=== PATIENT | male | born 1960 | race Caucasian/White ===

== ENCOUNTER → 2023-04-29 | Outpatient (CLI) | payer OTHER, SELFPAY ==
--- NOTE | 2023-04-29 13:32 | EKG12_ITS ---
Test Reason : PRE OP Blood Pressure : / mmHG Vent. Rate : 054 BPM Atrial Rate : 054 BPM P-R Int : 132 ms QRS Dur : 130 ms QT Int : 424 ms P-R-T Axes : 086 096 068 degrees QTc Int : 402 ms Sinus bradycardia with Premature atrial complexes Right bundle branch block Abnormal ECG Confirmed by OSVALDO LOMBARDI, NAZARIO ([id number]), supervising film or videotape editor ROYCE TRUJILLO ([id number]) on 05/06/2023 9:28:33 AM Referred By: Jimmy Balderas Confirmed By:NAZARIO RILEY MD
== END | disposition home or self-care (01) ==
PROVIDERS: Referring Provider Student in an Organized Health Care Education/Training Program; Visit Provider Student in an Organized Health Care Education/Training Program
DX: Z01.818 Encounter for other preprocedural examination (principal)
CPT/HCPCS: 93005

== ENCOUNTER → 2023-07-17 | Outpatient (CLI) | payer OTHER, SELFPAY ==
[2023-07-17 10:56] LABS: Hematocrit 47.2 % (40-54); Hemoglobin 15.9 g/dL (13.0-16.5); Mean Corp Hgb Conc 33.7 g/dL (32-36); Mean Corpuscular Hgb 32.5 pg (27.0-32.0); Mean Corpuscular Volume 96.5 fL (80-94); Mean Platelet Vol. 9.4 fl (6.2-12.0); Platelet Count 263 K/mm3 (150-450); RBC Distribution Width CV 14.3 % (11.6-14.6); RBC Distribution Width SD 51.2 fl (35.1-43.9); Red Blood Count 4.89 M/mm3 (4.6-6.2); White Blood Count 7.6 K/mm3 (4.4-11.0)
[2023-07-17 11:41] LABS: ALB/GLOB Ratio 1.1 RATIO (0.9-2.4); AST(SGOT) 26 U/L (15-37); Alanine Aminotransfer ALT/SGPT 25 U/L (16-61); Albumin, Serum 3.8 g/dL (3.2-5.0); Alkaline Phosphatase 84 U/L (45-117); Anion Gap 3 (5-15); BUN 17 mg/dL (7-18); BUN/Creat Ratio 15.6 RATIO (10-20); Chloride 103 mmol/L (98-107); Cholesterol 194 mg/dL (200); Creatinine, Serum 1.09 mg/dL (0.70-1.30); EST Glomerular Filtration Rate 73 mL/min (>60); Est Glom Filt Rate - Afr Amer 88 mL/min (>60); Globulin 3.5 g/dL (2.2-4.2); Glucose 84 mg/dL (74-106); High Density Lipoprotein 70 mg/dL; Protein, Total 7.3 g/dL (6.4-8.2); Sodium Level 137 mmol/L (136-145); Triglycerides 54 mg/dL; Very Low Density Lipoprotein 11 mg/dL (5-40)
--- OUTSIDE RECORDS SUMMARY | 2023-07-17 16:43 | XMS RPT_ITS | CCD ---
Author Name Unknown Address [address] [place] [address] Organization [facility] Allergies Allergy Classification Reported Allergen(s) Allergy Type Date of Onset Reaction(s) Facility (1 source) buPROPion; Translations: [BUPROPION HCL] Drug Allergy 01-22-2005 [facility] Repository Results Test Name Value Interpretation Reference Range Facil ity Encounters Encounter Date Encounter Type Care Provider Facility Start: 02-21-2017 End: 02-21-2017 Ambulatory [facility] Summary Purpose Family History No Family History Records Found Advance Directives No Advanced Directives Records Found Additional Source Comments (unrecognized sect ion and content) No Status Records Found INFORMATION SOURCE (unrecogn ized section and content) FOR RECORDS PERTAINING TO PATIENTS WHO ARE OR HAVE BEEN ENROLLED IN A CHEMICAL DEPENDENCY/SUBSTANCEABUSE PROGRAM, SOME INFORMATION MAY BE OMITTED. This clinical summary was aggregated from multiple sources. Caution should be exercised in using it in the provision of clinical care. This summary normalizes information from multiple sources, and as a consequence, information in this document may materially change the coding, format and clinical context of patient data. In addition, data may be omitted in some cases. CLINICAL DECISIONS SHOULD BE BASED ON THE PRIMARY CLINICAL RECORDS. [employer] provides no warranty or guarantee of the accuracy or completeness of information in this document.
== END | disposition home or self-care (01) ==
PROVIDERS: Visit Provider Internal Medicine Cardiovascular Disease
DX: Z01.810 Encounter for preprocedural cardiovascular examination (principal)
CPT/HCPCS: 36415; 80053; 80061; 85027

== ENCOUNTER 2024-01-08 05:44 | Day surgery (SDC) | payer OTHER, SELFPAY ==
[2023-12-25 08:26] LABS: Absolute Lymphocyte Count 3.05 X10^3/uL (0.83-4.51); Absolute Neutrophil Count 4.6 X10^3/uL (2.0-7.7); Basophil# 0.07 X10^3/uL; Basophil% 0.8 % (0-1); Eosinophil# 0.13 X10^3/uL; Eosinophils% 1.5 % (0-5); Hematocrit 47.6 % (40-54); Hemoglobin 15.8 g/dL (13.0-16.5); Lymphocyte # 3.05 X10^3/ul (0.83-4.51); Lymphocyte % 35.9 % (19-41); Mean Corp Hgb Conc 33.2 g/dL (32-36); Mean Corpuscular Hgb 32.1 pg (27.0-32.0); Mean Corpuscular Volume 96.7 fL (80-94); Mean Platelet Vol. 9.7 fl (6.2-12.0); Monocyte# 0.64 X10^3/uL; Monocyte% 7.5 % (0-10); NRBC Flagged by Analyzer 0 % (0-5); Neutrophil # 4.59 X10^3/uL (2.7-7.7); Neutrophil % 54.1 % (47-70); Platelet Count 243 K/mm3 (150-450); RBC Distribution Width CV 14.5 % (11.6-14.6); RBC Distribution Width SD 51.9 fl (35.1-43.9); Red Blood Count 4.92 M/mm3 (4.6-6.2); White Blood Count 8.5 K/mm3 (4.4-11.0)
[2023-12-25 08:54] LABS: Anion Gap 2 (5-15); BUN 16 mg/dL (7-18); Calcium,Total 9.2 mg/dL (8.5-10.1); Chloride 103 mmol/L (98-107); Creatinine, Serum 1.14 mg/dL (0.70-1.30); EST Glomerular Filtration Rate 69 mL/min (>60); Est Glom Filt Rate - Afr Amer 84 mL/min (>60); Glucose 107 mg/dL (74-106); Potassium 3.7 mmol/L (3.5-5.1); Sodium Level 136 mmol/L (136-145)
[2024-01-08] VITALS (10 sets, daily range): BP systolic 126–155; BP diastolic 70–91; PULSE 40–69; RESP 14–18; TEMP 36.1–36.6; O2SAT 93–98; BMI 19.8
[2024-01-08] MEDS: Lactated Ringers 1,000 ML 15 ML IV (06:11)
--- NOTE | 2024-01-08 07:03 | PCM.PRE.AN2 ---
ASA Classification* ASA Classification ASA Classification: 2 Assessment & Plan Anesthesia* Anesthesia Assessment Anesthesia Assessment: Discussed sedation and/or anesthesia options, risks, benefits, and alternatives with patient/parents/legal guardian/POA. Questions invited. The patient/parents/legal guardian/POA seems to understand and agrees to proceed with anesthesia plan. Reviewed the physical assessment, medical history, allergy history and patient home medications list prior to surgery/procedure/anesthetic and documented any changes. Performed airway and anesthesia risk assessments. Anesthesia Type Anesthesia Type: General (see written pre anesthesia record for full assessment) Anesthesia Focused Assessment* Temperature: 97.5 F Pulse Rate: 40 Blood Pressure: 155/76 Respiratory Rate: 16 Pulse Ox: 98 Airway Assessment Mouth opens: >3 cm Mallampati Score: II Focused Labs Anesthesia Preop lab: CBC WBC 8.5 K/mm3 (4.4-11.0) 12/25/23 08:02 RBC 4.92 M/mm3 (4.6-6.2) 12/25/23 08:02 Hgb 15.8 g/dL (13.0-16.5) 12/25/23 08:02 Hct 47.6 % (40-54) 12/25/23 08:02 Plt Count 243 K/mm3 (150-450) 12/25/23 08:02 CHEMISTRY Potassium 3.7 mmol/L (3.5-5.1) 12/25/23 08:02 Sodium 136 mmol/L (136-145) 12/25/23 08:02 BUN 16 mg/dL (7-18) 12/25/23 08:02 Creatinine 1.14 mg/dL (0.70-1.30) 12/25/23 08:02 Glucose 107 mg/dL (74-106) H 12/25/23 08:02 COAG Pre-Assessment Diagnosis/Proposed Procedure Planned Operative Procedure(s): (R) Middle and Ring Finger Trigger Release, Carpal Tunnel Release and Elbow Ulnar Nerve Decompression and Transposition Anesthesia History 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 When Was Last Pacemaker Check QUESTION #4 FULL TEXT: You/Your Family Experience fever (hyperthermia) with Anesthesia Last Oral Intake Last Oral intake: Last Oral Intake NPO since 22:00 01/08/24 06:07 Meds taken in AM with sips of water? 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 operator Female No 12/24/23 08:24 HX of Motion Sickness No 12/24/23 08:24 HX of N/V After Surgery No 12/24/23 08:24 Non-Smoker No 12/24/23 08:24 Duration of Surgery greater Yes 12/24/23 08:24 than 60 minutes Number of Risk Factors 1 12/24/23 08:24 PONV Score Low Risk 12/24/23 08:24 Height & Weight Height & Weight: Anesthesia: Height & Weight Height 6 ft 1 in 01/08/24 06:07 Weight: 68 kg 01/08/24 06:07 Body Mass Index (BMI) 19.8 01/08/24 06:07 Respiratory Assessment Respiratory Assessment - ring cutter lathe operator: Respiratory Tract Infection Hx - ring cutter lathe operator Hx Respiratory Tract Infection No 12/24/23 08:24 STOP Sleep Apnea STOP Sleep Apnea - ring cutter lathe operator: STOP Sleep Apnea - ring cutter lathe operator Hx Hypertension Yes: CONTROLLED WITH MED 12/24/23 08:24 Hx Sleep Apnea No 12/24/23 08:24 CPAP BIPAP Do you snore loudly (louder No 12/24/23 08:24 than talking or can be heard Do you often feel tired/ No 12/24/23 08:24 fatigued/ sleepy during daytime? Has anyone observed you stop No 12/24/23 08:24 breathing during sleep? STOP Results Negative 12/24/23 08:24 QUESTION #5 FULL TEXT : Do you snore loudly (louder than talking or can be heard through closed doors)? 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 Specify any problems Hx of Preganancy in last 3 N/A 12/24/23 08:24 Months Nurse Filling Out Transfusion NBUCHER 12/24/23 08:24 & Questions: Date: 12/24/23 12/24/23 08:24 Time: 08:26 12/24/23 08:24 Patient unable to answer at this time (ie. confused, unrespo /Reproduction History /Reproductive History - ring cutter lathe operator: /Reproductive Hx- ring cutter lathe operator Hx Now No 12/24/23 08:24 Gestational Age (in weeks): EDC: Hx Hx Para Hx Section SAB No 12/24/23 08:24 Active Medications Active Medications: Current Medications Generic Name Dose Route Start Last Admin Trade Name Freq PRN Reason Stop Dose Admin Cefazolin Sodium 2 gm/ Sodium 110 mls @ 150 mls/hr 01/08/24 07:30 Chloride IV 01/08/24 08:13 PREOP ONE Lactated Ringer's 1,000 mls @ 15 mls/hr 01/08/24 06:00 01/08/24 06:11 IV 15 mls/hr .Q48H VENKATA Administration PFSH Medical History Wears glasses Smoker Cardiology follow-up encounter Abnormal EKG History of depression TIA (transient ischemic attack) History of pelvic fracture Home Medications ?Medication ?Instructions ?Recorded ?Last Taken ?Type losartan 50 mg tablet 50 mg PO DAILY #90 tabs 01/07/24 Unknown Rx Allergy/AdvReac Type Severity Reaction Status Date / Time bupropion (From Wellbutrin) Allergy Severe Unknown Verified 01/08/24 06:07 Family History Mother Diabetes Surgical History History of appendectomy History of disruption of medial collateral ligament History of reconstruction of anterior cruciate ligament tear History of foot surgery Social History Smoking Status: Current every day smoker tobacco type: cigarettes alcohol intake: current substance use type: marijuana caffeine: Yes Type: coffee Number of servings: 4 Review of Systems (Anesthesia) ROS Narrative System reviewed and no additional complaints, except as documented.
[2024-01-08] MEDS: Cefazolin 2 GM in 0.9% Normal Saline (100mL Bag) 100 ML IV (07:25)
[2024-01-08] MEDS: Bupivacaine Mpf 0.5% 30 ML VIAL (08:18)
--- NOTE | 2024-01-08 08:42 | PCM.POST.ANE ---
Anesthesia: Postop Eval I Current Vital Signs Temperature: 97.6 F Pulse Rate: 43 Blood Pressure: 134/73 Respiratory Rate: 14 Pulse Ox: 97 Oxygen Delivery Method: Room Air Assessment Airway patent: Yes Spontaneous unlabored respirations: Yes Mental status: Awake and Calm nausea: No Vomiting: No Anesthesia Complication: No Fluid Hydration Crystalloid volume administer (ml): 1,000 Total IV fluid infused: 1,000 Progress Note Anesthesia document: Postop Eval 1 completed: Yes
[2024-01-08] MEDS: Ketorolac 15 MG/ML Vial IV (08:55)
--- NOTE | 2024-01-08 09:10 | POSTOPAN2_ITS ---
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.[email or web address] Spontaneous unlabored Yes 01/08/24 08:43 WATERPROOF BAG CUTTING MACHINE OPERATOR.[email or web address] respirations Mental status Awake,Calm 01/08/24 08:43 WATERPROOF BAG CUTTING MACHINE OPERATOR.[email or web address] nausea No 01/08/24 08:43 WATERPROOF BAG CUTTING MACHINE OPERATOR.JBLOU Vomiting No 01/08/24 08:43 WATERPROOF BAG CUTTING MACHINE OPERATOR.JBLOU Anesthesia Postop Eval I: Fluid Summary Crystalloid volume administer 1,000 01/08/24 08:43 WATERPROOF BAG CUTTING MACHINE OPERATOR.JBLOU (ml) Colloids volume administered ( ml) Blood Product volume administered (ml) Total IV fluid infused 1,000 01/08/24 08:43 WATERPROOF BAG CUTTING MACHINE OPERATOR.JBLOU Anesthesia Postop Eval I: Summary Notes Anesthesia Complication No 01/08/24 08:43 WATERPROOF BAG CUTTING MACHINE OPERATOR.JBLOU Anesthesia Complication Comment: Post-operative progress note Anesthesia: Postop Eval II Evaluation Mental status: Awake Pain Level: 0 nausea: No Vomiting: No
--- NOTE | 2024-01-08 09:10 | PCM.POSTANE2 ---
Anesthesia Postop Eval I Sum Postop Eval Completion status Anesthesia document: Postop Eval 1 completed: Yes Anesthesia Postop Eval I Summary Anesthesia Postop Eval I Summary: Anesthesia Postop Eval I: Assessment Summary Airway patent Yes 01/08/24 08:43 DERMATOLOGY SPECIALIST.[email or web address] Spontaneous unlabored Yes 01/08/24 08:43 DERMATOLOGY SPECIALIST.JBLOU respirations Mental status Awake,Calm 01/08/24 08:43 DERMATOLOGY SPECIALIST.JBLOU nausea No 01/08/24 08:43 DERMATOLOGY SPECIALIST.JBLOU Vomiting No 01/08/24 08:43 DERMATOLOGY SPECIALIST.JBLOU Anesthesia Postop Eval I: Fluid Summary Crystalloid volume administer 1,000 01/08/24 08:43 DERMATOLOGY SPECIALIST.JBLOU (ml) Colloids volume administered ( ml) Blood Product volume administered (ml) Total IV fluid infused 1,000 01/08/24 08:43 DERMATOLOGY SPECIALIST.JBLOU Anesthesia Postop Eval I: Summary Notes Anesthesia Complication No 01/08/24 08:43 DERMATOLOGY SPECIALIST.JBLOU Anesthesia Complication Comment: Post-operative progress note Anesthesia: Postop Eval II Evaluation Mental status: Awake Pain Level: 0 nausea: No Vomiting: No
--- NOTE | 2024-01-08 10:17 | OP.PCM_ITS ---
Report of Operation Date of Procedure: 01/08/24 Description of Surgical Findings:: Preoperative diagnosis: 1. Right long finger trigger finger 2. Right ring finger trigger finger 3. 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 Right carpal tunnel syndrome Postoperative diagnosis: 1. Right long finger trigger finger 2. Right ring finger trigger finger 3. 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 Right carpal tunnel syndrome Procedure: 1. Right long finger A1 gissel release 2. Right ring finger A1 gissel release 3. Right cubital tunnel decompression with subcutaneous ulnar nerve anterior transposition 4. Right open carpal tunnel release Surgeon: Jimmy Balderas DO medical assistant dermatology: Bebe Leonard PA-C Anesthesia: General LMA Anesthesiologist: Dr. Alvarez Complications: None Drains: None Estimated blood loss: 10 cc Urinary output: None measured IV fluids: Per anesthesia record Specimens: None Surgical implants: None Surgical indications: This is a 63-year-old male seen in the outpatient setting diagnosed with right long and ring finger trigger fingers, acute carpal tunnel syndrome and right cubital tunnel syndrome with ulnar nerve instability. The patient failed nonoperative management in the form of anti-inflammatory medications, activity modification. Nerve compression was was confirmed on EMG/NCV. Operative intervention was recommended in the form of A1 gissel releases of the right long and ring fingers, carpal tunnel release and cubital tunnel decompression with ulnar nerve transposition. There was evidence of ulnar nerve instability on examination the office. The risks, benefits, alternatives to procedure were reviewed with patient at length in the outpatient setting and he agreed to proceed. Risks included but were not limited to bleeding, infection, loss of life or limb, risk of anesthesia, persistent pa resthesias, persistent triggering, stiffness neurovascular injury, persistent pain, need for additional surgery, stiffness, loss of hand function. Patient expressed understanding wish to proceed with surgery. Informed consent obtained in the office. Description of procedure: Patient was seen in preoperative holding area. Patient was identified by name, medical record number, date of . The operative extremity was marked with a surgical marker. We confirmed informed consent with the patient and all questions were answered to the patient's satisfaction. At time of his procedure, patient was brought to the operative suite and positioned supine a standard operating table. All bony prominences were well- padded. General anesthesia was induced and LMA placed. The operative upper extremity was then prepped for surgery by first applying a well-padded pneumatic tourniquet to the right upper arm. The hand table attached to the right side of the table. We spun the bed 90 degrees. The right upper extremity was then prepped and draped in normal, sterile orthopedic fashion. 2 g Ancef was administered prior to incision by anesthesia staff. We performed a timeout at this point confirming side, site, and operation to be performed. No concerns voiced and elected to proceed. I then exsanguinated the right extremity with a Esmarch bandage. Tourniquet inflated to 250 mL mercury for approximately 25 minutes. I first turned my attention to the right long finger A1 gissel. Longitudinal incision was made sharply through skin and subcutaneous tissue overlying the A1 gissel in the pal m. I bluntly dissected down to level A1 gissel. Neurovascular bundles were protected. The A1 gissel was then split in line with the incision. Complete release was confirmed. Flexor tendons were then retrieved out of the wound and examined without gross abnormality. No residual triggering was noted. I then turned my attention to the right ring finger. Longitudinal incision was made sharply over the A1 gissel in the palm approximately 1 cm. Blunt dissection was carried down to level of the A1 gissel. Neurovascular bundles were protected. The A1 gissel was then split in line with the incision. Complete release was confirmed. The flexor tendons were retrieved out of the wound and examined without gross abnormality. No residual triggering was noted. I then turned my attention to the carpal tunnel. A standard longitudinal incision was made distal to the wrist crease and proximal to Oshea's cardinal line and in line with the fourth ray. Full-thickness skin flaps were developed down to level of the palmar fascia. Heiss retractor was placed. Palmar fascia was opened in line with the incision. Palmaris brevis was encountered and cauterized. Transverse carpal ligament was then identified and split sharply in line with the incision. The contents of the carpal tunnel were then visualized. Complete proximal and distal release of the transverse carpal ligament was perf ormed. The distal 5 mm of the antebrachial fascia was also released sharply. No aberrancies of the median nerve were noted. I then turned my attention to the elbow. Standard oblique incision was made approximately 6 cm in length across the elbow crease between the medial epicondyle and the olecranon. Skin was sharply incised with a 15 blade scalpel. Blunt dissection was carried down to the level of the fascia. A large branch of the median antebrachial cutaneous nerve was identified and protected throughout the case. Crossing vessels were cauterized. I then opened the fascia overlying the cubital tunnel. The ulnar nerve was identified and appeared to be constricted at the FCU 2 heads. Superficial and deep fascia of the FCU was released. Stoddard's ligament was released. The arcade of [place] was then released. A 1 x 5 cm slip of intermuscular septum was also excised in the brachium. I then placed a vessel loop around the ulnar nerve due to clinical instability of the nerve. I carefully elevated the nerve from surrounding adhesions at its base. The nerve was transposed volarly. I then elevated a fascial flap from the flexor pronator mass approximately 3 cm in length originating from the medial epicondyle. I placed a horizontal mattress suture from the edge of this flap to the subcutaneous fascia creating a sling for anterior transposition. I tied 1 knot in this flap fixation and brought the elbow through range of motion. No kinking of the nerve was noted and the nerve was free to glide within the transposed position. No remaining entrapment was noted in the cubital tunnel. I then completed fixation with several square knots. Tourniquet was then deflated. The wounds were copiously irrigated with normal saline solution. Hemostasis was excellent. A field block was administered with 30 cc 0.5% plain Marcaine in the incisions. Dermis was reapproximated buried 3-0 Vicryl suture and skin was closed with running horizontal mattress 4-0 nylon suture in the elbow incision. A1 gissel release and carpal tunnel incisions were reapproximated with interrupted horizontal mattress 4-0 nylon suture. Sterile compression dressing was then applied. Patient tolerated procedure well without apparent complication. Patient was transferred to PACU in stable condition. Patient was placed in a simple sling. Intraoperative medications: Post Operative Plan: Weightbearing: Nonweightbearing operative extremity Antibiotics: Ancef 2 g x 1 dose preoperatively DVT Prophylaxis: Twice daily aspirin 81 mg x 2 weeks Seaman: None Dressing: Maintain dressing x 3 days then okay to shower. Recommend sling for the next 7 to 10 days, okay for gentle mid range of motion of the elbow. X-Rays: None Pain Medication: Hydrocodone Rx upon discharge Follow-up: 2 weeks post-operatively in the office
== END 2024-01-08 10:24 | disposition home or self-care (01) ==
LOC: SDC 05:44 → AC 05:47
PROVIDERS: Referring Provider Student in an Organized Health Care Education/Training Program; Visit Provider Student in an Organized Health Care Education/Training Program
PROC: (CPT 64718; principal; 2024-01-08 07:15)
DX: M65.341 Trigger finger, right ring finger (principal); G56.03 Carpal tunnel syndrome, bilateral upper limbs; M65.331 Trigger finger, right middle finger; G56.23 Lesion of ulnar nerve, bilateral upper limbs; I10 Essential (primary) hypertension; Z79.899 Other long term (current) drug therapy; Z86.73 Personal history of transient ischemic attack (TIA), and cerebral infarction without residual deficits; F17.210 Nicotine dependence, cigarettes, uncomplicated
CPT/HCPCS: 64718; 64721; 26055 ×2; 01810; 36415; 80048; 85025; J7120; J2405

== ENCOUNTER → 2024-02-05 | Outpatient (CLI) | payer OTHER, SELFPAY ==
--- NOTE | 2024-02-05 13:57 | ECHOD_ITS ---
Reason For Study: ABNORMAL EKG Procedure This was a 2D Doppler, Color Flow transthoracic echocardiogram. Exam performed in department. Left Ventricle Normal LV size. The estimated ejection fraction is 65 %. No evidence for diastolic dysfunction. No regional wall motion abnormalities noted. Right Ventricle Normal RV size. Normal systolic function. Atria The left and right atria are normal. No doppler evidence for ASD. Mitral Valve There is no mitral valve stenosis. Trivial mitral valve insufficiency. Tricuspid Valve There is no tricuspid stenosis. Unable to estimate RV systolic pressure due to inadequate jet, pulmonary artery pressure probably normal. Aortic Valve Trisinus/trileaflet aortic valve. Aortic sclerosis, no stenosis. There is no aortic stenosis. No aortic valve insufficiency. Pulmonic Valve There is no pulmonic valvular stenosis. Trivial pulmonic valve insufficiency. Great Vessels Normal aortic root. Pericardium/Pleural No pericardial effusion. MMode/2D Measurements & Calculations LVIDd: 4.6 cm IVSd: 0.91 cm LVOT diam: 2.2 cm LVIDs: 2.5 cm LVPWd: 0.93 cm LVOT area: 3.7 cm2 RVDd: 3.8 cm FS: 46.3 % asc Aorta Diam: 3.7 cm LAV(MOD-bp): 63.1 ml LVAd ap4: 27.1 cm2 LAV(MOD-bp) Indexed: 32.7 ml/m2 LVLd ap4: 7.4 cm LAV(MOD-sp2): 68.8 ml EDV(MOD-sp4): 81.0 ml LAV(MOD-sp4): 51.6 ml EDV(sp4-el): 84.5 ml LVAs ap4: 12.1 cm2 LVLs ap4: 5.7 cm ESV(MOD-sp4): 22.5 ml ESV(sp4-el): 21.7 ml EF(MOD-sp4): 72.3 % EF(sp4-el): 74.4 % LVAd ap2: 28.8 cm2 SV(MOD-sp4): 58.5 ml SV(MOD-sp2): 59.4 ml LVLd ap2: 7.7 cm EDV(MOD-sp2): 88.9 ml EDV(sp2-el): 91.3 ml LVAs ap2: 14.4 cm2 LVLs ap2: 6.0 cm ESV(MOD-sp2): 29.5 ml ESV(sp2-el): 29.4 ml EF(MOD-sp2): 66.8 % SV(sp4-el): 62.8 ml Ao sinus diam: 3.[address] Junction: 3.1 cm LA dimension(2D): 3.5 cm LA A4 area: 18.6 cm2 RA A4 area: 19.0 cm2 TAPSE: 2.4 cm Time Measurements MV dec time: 0.19 sec Doppler Measurements & Calculations MV E max solis: 83.3 cm/sec Lat Peak E' Solis: 10.5 cm/sec Med Peak E' Solis: 6.7 cm/sec MV A max solis: 46.2 cm/sec E/E' lat: 7.9 E/E' med: 12.5 MV E/A: 1.8 MV dec slope: 445.4 cm/sec2 Ao V2 max: 168.1 cm/sec LV V1 max: 140.9 cm/sec Ao max P.3 mmHg LV V1 max P.9 mmHg Ao V2 mean: 101.8 cm/sec LV V1 mean P.6 mmHg Ao mean P.0 mmHg LV V1 mean: 88.1 cm/sec Ao V2 VTI: 39.1 cm LV V1 VTI: 26.2 cm AV (velocity ratio): 0.67 DONELL(I,D): 2.5 cm2 DONELL(V,D): 3.1 cm2 SV(LVOT): 97.3 ml PA V2 max: 92.8 cm/sec PA max PG (full): 0.03 mmHg ECHO/Echo Complete Interpretation Summary The estimated ejection fraction is 65 %. No evidence for diastolic dysfunction. Trivial mitral valve insufficiency. Ordering Physician: Juarez Garcia Referring Physician: Juarez Garcia Performed By: Annita Carbajal RDCS
== END | disposition home or self-care (01) ==
LOC: CVS 13:56
PROVIDERS: Referring Provider Nurse Practitioner Family; Visit Provider Nurse Practitioner Family
DX: R94.31 Abnormal electrocardiogram [ECG] [EKG] (principal); I10 Essential (primary) hypertension
CPT/HCPCS: 93306

== ENCOUNTER 2024-02-19 08:00 | Outpatient (RCR) | payer OTHER, SELFPAY ==
--- NOTE | 2024-01-22 15:34 | HP.OTEVAL_ITS ---
Patient's Visit Information Visit Information Visit Information: HUSSEIN QUINTANA is a 63 year old M, referred to Occupational Therapy by CAROLINA Ritchie, with a diagnosis of carpal tunnel syndrome, trigger finger R MF and R RF, lesion of ulnar nerve. Date of Evaluation: 01/22/24 Occupational Therapist: Jessica Rizo Subjective Subjective: This 63 year old male arrives after completion of surgical intervention R hand trigger finger release to RF and MF, carpal tunnel release, cubital tunnel release tranposed ulnar nerve anteriorly. stitches taken out 01/20/24. pt reports symptoms had been going on for several years waking him up at night. Pt is R hand dominant. 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 pt with difficulty completing self care tasks due to decreased ability to use R dominant side. Pain RUE: Current Pain Intensity: 2 Objective Objective/Observation: pt arrives with swelling of RUE at hand as well as elbow. opening/ gapping of incision on palm as well as small portion of MF incision . ROM Elbow: R -23/110 L -5/140 Forearm: wfl Wrist: R 50/55 L 50/55 CMC: wfl MP: wfl IP: wfl Radial Abduction: wfl Palmar Abduction: wfl Opposition: wfl MP: D3 -20/75 D4 -/ PIP: D3 -38/70 D4 -30/72 DIP: D3 -10/35 D4-10/45 ROM Comments: unable to make composite fist approx 6cm from palm at MF able to opposite to all digits supination and pronation wfl Strength Elbow: L bicep 28.4# L tricep 27.0# Business Objects Architect: L 75# Lateral Pinch: L 15# Tripod Pinch: L12# Strength Comments: R NT at this time Edema Elbow: R 30 cm R 27 cm Wrist: R 19 cm L 18.5 Other: R MCP 23 cm L 22.5cm Sensation Middle: R 3.84 L 4.08 Ring: R 3.84 L 3.84 Quick DASH-Disab of Arm,Shoulder& Hand Quick DASH Score: 86.3625 Goals Goal:100% adherence to protocol: Yes Goal:Daily scar massage when approriate: Yes Comment: currently unable due to gapping at wrist and MF Goal:ROM equal to unaffected hand: Yes Goal:Business Objects Architect/Pinch strength at least 75% of unaffected hand: Yes Goal:No pain with affected hand use: Yes Goal:Full use of affected hand in daily activities including work: Yes Goal:Improvement in sensation documented by [place] monofiliaments: Yes Other Goal: pt will improve quick dash score by 15 points or more (86.36) in order to regain functional use of RUE in day to day tasks Rehabilitation General Assessment: This 63 year old male arrives with completion of ulnar nerve decompression anterior transposition as well as R hand MF RF trigger release at A1 gissel and carpal tunnel release. Pt presents this date for eval with pain, decreased sensation, limited ROM, as well as swelling in hand as well as elbow. Pt with stitches taken out however demonstrating gapping of stitch at wrist as well as small portion of MF incision. elbow incision appears to be intact. pt would benefit from OT services 2x a week for 4-6 weeks in order to regain motion and functional use of RUE. Rehabilitation Potential: Good Anticipated Interventions Anticipated Interventions: A/AAROM/PROM, Strengthening, Edema Control, Scar Care, Triggerpoint Release, Wound Care, Joint Protection/Energy Conservation, Education re Diagnosis and Home Program Visit Plan Frequency: 1-2x /Week Duration: 4-6 Weeks General Plan: AROM/AAROM/PROM blocking exercise reverse blocking exercise tendon glide nerve glide TEXT: Thank you for the opportunity to evaluate your patient. For Medicare and Medicare HMO plans, please review the plan of care and approve it. It will need to be FAXED BACK to us at [phone] for Medicare purposes. Please let me know if there are questions or concerns regarding this plan of care. Physician Signature: Date:
--- NOTE | 2024-02-12 08:30 | OTREVAL_ITS ---
Re-Evaluation Intro: CAROLINA Ritchie, It has been my pleasure to treat HUSSEIN QUINTANA over the last 7 visits for carpal tunnel syndrome, trigger finger R MF and R RF, lesion of ulnar nerve. Please see the progress note below for an update on the occupational therapy plan of care! Subjective Subjective: arrives doing well no new concerns. pt arrives 5 min early started session early. Objective Objective/Function: R hand 20# R hand lateral pinch 12# R tripod pinch 8# L hand 55# R hand MF PIP -25 after heat and exercise -20 able to make full composite fist reports slight numbness along MF radial side Plan Plan Frequency: 1-2x /Week Duration: 4-6 Weeks Plan: strengthening Goals Goals Patient Goals: Regain Strength, Decrease Pain, Return to Work, Decrease Swelling/Stiffness, Use Hand/Wrist/Arm Normally Again, Decrease Tingling/Numbness, Increase ROM, Resume Former Household Responsibilities (Cooking,Cleaning,Yard, etc.) and Resume Hobbies Goal:100% adherence to protocol: Yes Goal:Daily scar massage when approriate: Yes Goal:ROM equal to unaffected hand: Yes Goal:Child And Family Services Specialist/Pinch strength at least 75% of unaffected hand: Yes Goal:No pain with affected hand use: Yes Goal:Full use of affected hand in daily activities including work: Yes Goal:Improvement in sensation documented by [place] monofiliaments: Yes Other Goal: pt will improve quick dash score by 15 points or more (86.36) in order to regain functional use of RUE in day to day tasks Anticipated Interventions Anticipated Interventions Anticipated Interventions: A/AAROM/PROM, Strengthening, Edema Control, Scar Care, Triggerpoint Release, Wound Care, Joint Protection/Energy Conservation, Education re Diagnosis and Home Program Re-Evaluation Ending Re-evaluation ending: Please do not hesitate to contact me at [phone] by phone or if you have questions or concerns regarding this new plan of care! Sincerely, Jessica Rizo
--- NOTE | 2024-02-19 09:02 | HP.OTDCSUM_ITS ---
Discharge Summary D/C Summary: It has been my pleasure to treat HUSSEIN QUINTANA under orders from CAROLINA Ritchie, for the diagnosis of carpal tunnel syndrome, trigger finger R MF and R RF, lesion of ulnar nerve for a total of 9 visit(s). Please see the following information for a summary of their discharge status. 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 45# R lateral pinch 15# R tripod pinch 13# R hand MF PIP -23 denies any numbness other than inside of RF radial side Goals Patient Goals: Regain Strength, Decrease Pain, Return to Work, Decrease Swelling/Stiffness, Use Hand/Wrist/Arm Normally Again, Decrease Tingling/Numbness, Increase ROM, Resume Former Household Responsibilities (Cooking,Cleaning,Yard, etc.) and Resume Hobbies Goal:100% adherence to protocol: Yes Goal Progress: Goal Met Goal:Daily scar massage when approriate: Yes Goal Progress: Goal Met Goal:ROM equal to unaffected hand: Yes Goal Progress: Goal Met Goal:Principal Consulting Engineer/Pinch strength at least 75% of unaffected hand: Yes Goal Progress: Goal Met Goal:No pain with affected hand use: Yes Goal Progress: Goal Met Goal:Full use of affected hand in daily activities including work: Yes Goal Progress: Goal Met Goal:Improvement in sensation documented by [place]-Aliyah monofiliaments: Yes Goal Progress: Goal Met Other Goal: pt will improve quick dash score by 15 points or more (86.36) in order to regain functional use of RUE in day to day tasks now 15.9 GOAL MET Plan Plan: discharge D/C Information Discharge Comments: This 63 year old male seen for carpal tunnel release as well as ulnar nerve transposition and trigger finger release progressed throughout POC. Pt has met all goals and will be discharged from therapy at this time pt is in agreeance with plan to continue gentle strengthening at home. d/c sentence: If there are questions or concerns regarding this patient's occupational therapy, please fell free to call me at [phone]. Thank you for the referral of this patient. Sincerely, Jessica Rizo
--- NOTE | 2024-02-19 09:02 | HP.OT.NRP ---
Patient Information Patient Information: HUSSEIN QUINTANA was seen in my office for initial evaluation on 01/22/24. The following Plan of Care was established for this patient: POC Established Initial Frequency: 1-2x /Week Initial Duration: 4-6 Weeks Plan: discharge Anticipated Interventions Anticipated Interventions: A/AAROM/PROM, Strengthening, Edema Control, Scar Care, Triggerpoint Release, Wound Care, Joint Protection/Energy Conservation, Education re Diagnosis and Home Program Last Seen Last Seen: This patient was last seen in our office 02/19/24. Pertinent comments regarding their Occupational therapy will appear below: This 63 year old male seen by OT 9 visits for carpal tunnel release, ulnar nerve transposition as well as trigger finger release. Pt progressed throughout POC in ROM decreased pain improved sensation as well as increased strength. pt has met all goals discharge at this time with pt in agreeance. At this point I will be discontinuing this patient from occupational therapy. I would be happy to see this patient again in the future if found appropriate by the physician. Thank you! Jessica Rizo
== END 2024-02-19 19:00 | disposition home or self-care (01) ==
LOC: OT 08:00
PROVIDERS: Referring Provider Physician Assistant Surgical; Visit Provider Physician Assistant Surgical
DX: G56.01 Carpal tunnel syndrome, right upper limb (principal); G56.21 Lesion of ulnar nerve, right upper limb; M65.331 Trigger finger, right middle finger
CPT/HCPCS: 97110; 97140; 97165; 97530

== ENCOUNTER 2024-05-27 11:07 | Day surgery (SDC) | payer OTHER, SELFPAY ==
--- NOTE | 2024-05-17 10:39 | PAT.ANESEVAL ---
Pre-Assessment Diagnosis/Proposed Procedure Planned Operative Procedure(s): (L) Carpal Tunnel Release, Long Finger Trigger Release, Elbow Ulnar Nerve Decompression and Transposition, Excision Inclusion Cyst Hand Anesthesia History Anesthesia History - broth setter: Anesthesia History - broth setter Hx Hospitalization No 05/17/24 08:53 Any Problems With Anesthesia No 05/17/24 08:53 Cholinesterase deficiency No 05/17/24 08:53 You/Your Family Experience No 05/17/24 08:53 fever (hyperthermia) with Relationship Recent Exposure to Contagious No 01/08/24 06:07 Disease Does patient have nerve No 05/17/24 08:53 stimulator Patient instructed to have device shut off --Does patient have Pacemaker or ICD? When Was Last Pacemaker Check QUESTION #4 FULL TEXT: You/Your Family Experience fever (hyperthermia) with Anesthesia Last Oral Intake Last Oral intake: Last Oral Intake NPO since Meds taken in AM with sips of water? Meds patient instructed to take am of surgery PONV PONV - broth setter: PONV - broth setter Female No 05/17/24 08:53 HX of Motion Sickness No 05/17/24 08:53 HX of N/V After Surgery No 05/17/24 08:53 Non-Smoker No 05/17/24 08:53 Duration of Surgery greater Yes 05/17/24 08:53 than 60 minutes Number of Risk Factors 1 05/17/24 08:53 PONV Score Low Risk 05/17/24 08:53 Height & Weight Height & Weight: Anesthesia: Height & Weight Height 6 ft 1 in 01/15/24 09:32 Respiratory Assessment Respiratory Assessment - broth setter: Respiratory Tract Infection Hx - broth setter Hx Respiratory Tract Infection No 05/17/24 08:53 STOP Sleep Apnea STOP Sleep Apnea - broth setter: STOP Sleep Apnea - broth setter Hx Hypertension Yes: CONTROLLED WITH MED 05/17/24 08:53 Hx Sleep Apnea No 05/17/24 08:53 CPAP BIPAP Do you snore loudly (louder No 05/17/24 08:53 than talking or can be heard Do you often feel tired/ No 05/17/24 08:53 fatigued/ sleepy during daytime? Has anyone observed you stop No 05/17/24 08:53 breathing during sleep? STOP Results Negative 05/17/24 08:53 QUESTION #5 FULL TEXT : Do you snore loudly (louder than talking or can be heard through closed doors)? 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 Specify any problems Hx of Preganancy in last 3 N/A 05/17/24 08:53 Months Nurse Filling Out Transfusion VCHRISTIN 05/17/24 08:53 & Questions: Date: 05/17/24 05/17/24 08:53 Time: 08:54 05/17/24 08:53 Patient unable to answer at this time (ie. confused, unrespo /Reproduction History /Reproductive History - broth setter: /Reproductive Hx- broth setter Hx Now No 05/17/24 08:53 Gestational Age (in weeks): EDC: Hx Hx Para Hx Section SAB No 05/17/24 08:53 PFSH Medical History (Updated 05/17/24 @ 08:57 by Tanya Watt) Hypertension History of echocardiogram Wears glasses Smoker Cardiology follow-up encounter Abnormal EKG History of depression TIA (transient ischemic attack) History of pelvic fracture Home Medications ?Medication ?Instructions ?Recorded ?Last Taken ?Type losartan 50 mg tablet 50 mg PO DAILY #90 tabs 01/07/24 Unknown Rx Allergy/AdvReac Type Severity Reaction Status Date / Time bupropion (From Wellbutrin) Allergy Severe Unknown Verified 05/17/24 08:50 Family History Mother Diabetes Surgical History (Updated 05/17/24 @ 08:53 by Tanya Watt) Hx of decompression of ulnar nerve History of carpal tunnel release History of appendectomy History of disruption of medial collateral ligament History of reconstruction of anterior cruciate ligament tear History of foot surgery Social History (Updated 01/15/24 @ 09:35 by Fiona Strong) Smoking Status: Current every day smoker tobacco type: cigarettes alcohol intake: current alcohol intake frequency: a few times a month substance use type: marijuana caffeine: Yes Type: coffee Number of servings: 4 Audit: Pertinent Findings Pertinent Findings EKG Perinent findings: 01/15/2024 marked sinus bradycardia occasional PACs LVH right bundle branch block right axis deviation possible RVH consider pulmonary disease Echo (EF%) pertinent findings: EF 65% no evidence diastolic dysfunction 02/05/2024 Consult pertinent findings: Cardiology 01/15/2024 abnormal EKG check echocardiogram which was essentially - 02/05/2024 hypertension chronic stable Recommendation Anesthesia Recommendation Anesthesia recommendation: OPTIMIZED for anesthesia
[2024-05-27] VITALS (8 sets, daily range): BP systolic 110–148; BP diastolic 67–86; PULSE 43–88; RESP 14–16; TEMP 36.2–36.8; O2SAT 96–100; BMI 19.2
[2024-05-27] MEDS: 0.9% Normal Saline (1000mL) 1,000 ML 15 ML IV (11:46)
--- NOTE | 2024-05-27 12:09 | PCM.PRE.AN2 ---
ASA Classification* ASA Classification ASA Classification: 3 Assessment & Plan Anesthesia* Anesthesia Assessment Anesthesia Assessment: Discussed sedation and/or anesthesia options, risks, benefits, and alternatives with patient/parents/legal guardian/POA. Questions invited. The patient/parents/legal guardian/POA seems to understand and agrees to proceed with anesthesia plan. Reviewed the physical assessment, medical history, allergy history and patient home medications list prior to surgery/procedure/anesthetic and documented any changes. Performed airway and anesthesia risk assessments. Anesthesia Type Anesthesia Type: General and Block (Pain block was discussed with the patient. He states he wants what ever he got for the other side in January 2024. Review of his old chart shows that patient did not get a pain block in the previous surgery. Thus we will hold off at this time.) History Source History Obtained from:: Patient and Chart Anesthesia Focused Assessment* Temperature: 97.3 F Pulse Rate: 88 Blood Pressure: 148/77 Respiratory Rate: 16 Pulse Ox: 100 Oxygen Delivery Method: Room Air Airway Assessment Mouth opens: >3 cm Mallampati Score: II Teeth Condition: Missing (Patient is missing multiple teeth. Remaining teeth are tight.) Neck Range of motion (ROM): Full ROM Focused Labs Anesthesia Preop lab: CBC WBC 8.5 K/mm3 (4.4-11.0) 12/25/23 08:02 RBC 4.92 M/mm3 (4.6-6.2) 12/25/23 08:02 Hgb 15.8 g/dL (13.0-16.5) 12/25/23 08:02 Hct 47.6 % (40-54) 12/25/23 08:02 Plt Count 243 K/mm3 (150-450) 12/25/23 08:02 CHEMISTRY Potassium 3.7 mmol/L (3.5-5.1) 12/25/23 08:02 Sodium 136 mmol/L (136-145) 12/25/23 08:02 BUN 16 mg/dL (7-18) 12/25/23 08:02 Creatinine 1.14 mg/dL (0.70-1.30) 12/25/23 08:02 Glucose 107 mg/dL (74-106) H 12/25/23 08:02 COAG Pre-Assessment Diagnosis/Proposed Procedure Planned Operative Procedure(s): (L) Carpal Tunnel Release, Long Finger Trigger Release, Elbow Ulnar Nerve Decompression and Transposition, Excision Inclusion Cyst Hand Anesthesia History 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 When Was Last Pacemaker Check QUESTION #4 FULL TEXT: You/Your Family Experience fever (hyperthermia) with Anesthesia Last Oral Intake Last Oral intake: Last Oral Intake NPO since 07:00 05/27/24 11:40 Meds taken in AM with sips of Yes 05/27/24 11:40 water? Meds patient instructed to take am of surgery Any additional information?: Yes NPO since: 07:00 Meds taken in AM with sips of water?: Yes PONV PONV - big data solutions architect: PONV - big data solutions architect Female No 05/17/24 08:53 HX of Motion Sickness No 05/17/24 08:53 HX of N/V After Surgery No 05/17/24 08:53 Non-Smoker No 05/17/24 08:53 Duration of Surgery greater Yes 05/17/24 08:53 than 60 minutes Number of Risk Factors 1 05/17/24 08:53 PONV Score Low Risk 05/17/24 08:53 Height & Weight Height & Weight: Anesthesia: Height & Weight Height 6 ft 1 in 05/27/24 11:40 Weight: 66 kg 05/27/24 11:40 Body Mass Index (BMI) 19.2 05/27/24 11:40 Respiratory Assessment Respiratory Assessment - big data solutions architect: Respiratory Tract Infection Hx - big data solutions architect Hx Respiratory Tract Infection No 05/17/24 08:53 STOP Sleep Apnea STOP Sleep Apnea - big data solutions architect: STOP Sleep Apnea - big data solutions architect Hx Hypertension Yes: CONTROLLED WITH MED 05/17/24 08:53 Hx Sleep Apnea No 05/17/24 08:53 CPAP BIPAP Do you snore loudly (louder No 05/17/24 08:53 than talking or can be heard Do you often feel tired/ No 05/17/24 08:53 fatigued/ sleepy during daytime? Has anyone observed you stop No 05/17/24 08:53 breathing during sleep? STOP Results Negative 05/17/24 08:53 QUESTION #5 FULL TEXT : Do you snore loudly (louder than talking or can be heard through closed doors)? 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 Specify any problems Hx of Preganancy in last 3 N/A 05/17/24 08:53 Months Nurse Filling Out Transfusion VCHRISTIN 05/17/24 08:53 & Questions: Date: 05/17/24 05/17/24 08:53 Time: 08:54 05/17/24 08:53 Patient unable to answer at this time (ie. confused, unrespo /Reproduction History /Reproductive History - big data solutions architect: /Reproductive Hx- big data solutions architect Hx Now No 05/17/24 08:53 Gestational Age (in weeks): EDC: Hx Hx Para Hx Section SAB No 05/17/24 08:53 Active Medications Active Medications: Current Medications Generic Name Dose Route Start Last Admin Trade Name Freq PRN Reason Stop Dose Admin Cefazolin Sodium 2 gm/ N/A 20 mls @ 400 mls/hr 05/27/24 12:55 IV 05/27/24 12:57 PREOP ONE Sodium Chloride 1,000 mls @ 15 mls/hr 05/27/24 11:30 05/27/24 11:46 IV 06/02/24 00:49 15 mls/hr .Q48H VENKATA Administration Protocol PFSH Medical History Hypertension History of echocardiogram Wears glasses Smoker Cardiology follow-up encounter Abnormal EKG History of depression TIA (transient ischemic attack) History of pelvic fracture Home Medications ?Medication ?Instructions ?Recorded ?Last Taken ?Type losartan 50 mg tablet 50 mg PO DAILY #90 tabs 01/07/24 05/27/24 08:00 Rx Allergy/AdvReac Type Severity Reaction Status Date / Time bupropion (From Wellbutrin) Allergy Severe Unknown Verified 05/27/24 11:39 Family History Mother Diabetes Surgical History Hx of decompression of ulnar nerve History of carpal tunnel release History of appendectomy History of disruption of medial collateral ligament History of reconstruction of anterior cruciate ligament tear History of foot surgery Social History Smoking Status: Current every day smoker (Patient smoked today.) tobacco type: cigarettes alcohol intake: current alcohol intake frequency: a few times a month substance use type: marijuana caffeine: Yes Type: coffee Number of servings: 4 Review of Systems (Anesthesia) ROS Narrative System reviewed and no additional complaints, except as documented.
[2024-05-27] MEDS: Cefazolin 2 GM in Syringe IV (12:44)
[2024-05-27] MEDS: Lidocaine 1% /Epi 1:100 (20ml) 20 ML Vial (13:21)
[2024-05-27] MEDS: Bupivacaine Mpf 0.5% 30 ML VIAL (13:21)
--- NOTE | 2024-05-27 14:20 | PCM.OPRPT ---
Operative Report (Standard) Operative Information Date of Procedure: 05/27/24 Pre-Operative Diagnosis: 1. Left long finger trigger finger 2. Left palm epidermal inclusion cyst 3. 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 Left carpal tunnel syndrome Post-Operative Diagnosis: 1. Left long finger trigger finger 2. Left palm epidermal inclusion cyst 3. 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 Left carpal tunnel syndrome Surgery/Procedure Performed: 1. Left long finger A1 gissel release 2. Excision left palmar epidermal inclusion cyst 3. Left cubital tunnel release with anterior subcutaneous ulnar nerve transposition 4. Left open carpal tunnel release logging tractor operator: Yes Psychological Science Professor: Bebe Leonard Tasks completed by senior office assistant: Opening & closing, Hemostasis: Electrocautery and Retracting Type of Anesthesia: General RN Documented Start/Stop Times: Operation Date: 05/27/24 12:40 Case Time Into Pre-Op 05/27/24 11:29 Out of Pre-Op 05/27/24 12:41 Anesthesia Start 05/27/24 12:44 Into Room 05/27/24 12:44 Procedure Start 05/27/24 13:06 Procedure End 05/27/24 13:49 Anesthesia End 05/27/24 13:53 Out of Room 05/27/24 13:53 Into Recovery 05/27/24 13:55 Procedure Start Time: 13:06 Procedure Stop Time: 13:49 Select all DRAINS/GRAFTS/IMPLANTS that apply: None Estimated Blood Loss: 10 cc Specimen collected: No Description of surgery: Patient was seen in preoperative holding area. Patient was identified by name, medical record number, date of . The operative extremity was marked with a surgical marker. We confirmed informed consent with the patient and all questions were answered to the patient's satisfaction. At time of his procedure, patient was brought to the operative suite and positioned supine a standard operating table. All bony prominences were well-padded. General anesthesia was induced and LMA placed. The operative upper extremity was then prepped for surgery by first applying a well-padded pneumatic tourniquet to the left upper arm. The hand table attached to the left side of the table. We spun the bed 90 degrees. The left upper extremity was then prepped and draped in normal, sterile orthopedic fashion. 2 g Ancef was administered prior to incision by anesthesia staff. We performed a timeout at this point confirming side, site, and operation to be performed. No concerns voiced and elected to proceed. I then exsanguinated the left extremity with a Esmarch bandage. Tourniquet inflated to 250 mL mercury for approximately 27 minutes. I first turned my attention to the left long finger A1 gissel. Longitudinal incision was made sharply through skin and subcutaneous tissue overlying the A1 gissel in the palm. I bluntly dissected down to level A1 gissel. Neurovascular bundles were protected. The A1 gissel was then split in line with the incision. Complete release was confirmed. Flexor tendons were then retrieved out of the wound and examined without gross abnormality. No residual triggering was noted. I then turned my attention to the carpal tunnel. A standard longitudinal incision was made distal to the wrist crease and proximal to Oshea's cardinal line and in line with the fourth ray. Full-thickness skin flaps were developed down to level of the palmar fascia. Heiss retractor was placed. Palmar fascia was opened in line with the incision. Palmaris brevis was encountered and cauterized. Transverse carpal ligament was then identified and split sharply in line with the incision. The contents of the carpal tunnel were then visualized. Complete proximal and distal release of the transverse carpal ligament was performed. The distal 5 mm of the antebrachial fascia was also released sharply. No aberrancies of the median nerve were noted. I then identified the palmar inclusion cysts near the level of the hook of the pisiform. A 5 mm longitudinal incision was made. Blunt dissection was then carried out to identify the inclusion cyst with sebaceous material. Cyst contents and capsule were excised. The surrounding tissues were benign. I then turned my attention to the elbow. Standard oblique incision was made approximately 6 cm in length across the elbow crease between the medial epicondyle and the olecranon. Skin was sharply incised with a 15 blade scalpel. Blunt dissection was carried down to the level of the fascia. A large branch of the median antebrachial cutaneous nerve was identified and protected throughout the case. Crossing vessels were cauterized. I then opened the fascia overlying the cubital tunnel. The ulnar nerve was identified and appeared to be constricted at the FCU 2 heads. Superficial and deep fascia of the FCU was released. Stoddard's ligament was released. The arcade of [place] was then released. A 1 x 5 cm slip of intermuscular septum was also excised in the brachium. I then placed a vessel loop around the ulnar nerve due to clinical instability of the nerve. I carefully elevated the nerve from surrounding adhesions at its base. The nerve was transposed volarly. I then elevated a fascial flap from the flexor pronator mass approximately 3 cm in length originating from the medial epicondyle. I placed a horizontal mattress suture from the edge of this flap to the subcutaneous fascia creating a sling for anterior transposition. I tied 1 knot in this flap fixation and brought the elbow through range of motion. No kinking of the nerve was noted and the nerve was free to glide within the transposed position. No remaining entrapment was noted in the cubital tunnel. I then completed fixation with several square knots. Tourniquet was then deflated. The wounds were copiously irrigated with normal saline solution. Hemostasis was excellent. A field block was administered with 30 cc 0.5% plain Marcaine in the incisions. Dermis was reapproximated buried 3-0 Vicryl suture and skin was closed with subcuticular 4-0 Monocryl and Dermabond in the elbow incision. A1 gissel release, inclusion cyst and carpal tunnel incisions were reapproximated with interrupted horizontal mattress 4-0 nylon suture. Sterile compression dressing was then applied. Patient tolerated procedure well without apparent complication. Patient was transferred to PACU in stable condition. Patient was placed in a simple sling. Intraoperative medications: Post Operative Plan: Weightbearing: Nonweightbearing operative extremity Antibiotics: Ancef 2 g x 1 dose preoperatively DVT Prophylaxis: Twice daily aspirin 81 mg x 2 weeks Seaman: None Dressing: Maintain dressing x 3 days then okay to shower. Recommend sling for the next 7 to 10 days, okay for gentle mid range of motion of the elbow. X-Rays: None Pain Medication: Hydrocodone Rx upon discharge Follow-up: 2 weeks post-operatively in the office Surgical Findings: Ulnar nerve instability prior to transposition. Inclusion cyst right palm 5 x 5 x 5 mm. Complications Complications: No Admit VTE Documentation VTE Present on Admission: No VTE Mechan Device Prophylaxis: SCD's VTE Pharm Prophylaxis ordered?: Yes
--- NOTE | 2024-05-27 14:21 | PCM.POST.ANE ---
Anesthesia: Postop Eval I Current Vital Signs Temperature: 98.2 F Pulse Rate: 50 Blood Pressure: 110/71 Respiratory Rate: 16 Pulse Ox: 97 Oxygen Delivery Method: Room Air Assessment Airway patent: Yes Spontaneous unlabored respirations: Yes Mental status: Awake and Calm nausea: No Vomiting: No Anesthesia Complication: No Fluid Hydration Crystalloid volume administer (ml): 1,000 Total IV fluid infused: 1,000 Progress Note Anesthesia document: Postop Eval 1 completed: Yes
--- NOTE | 2024-05-27 19:00 | POSTOPAN2_ITS ---
Anesthesia Postop Eval I Sum Postop Eval Completion status Anesthesia document: Postop Eval 1 completed: Yes Anesthesia Postop Eval I Summary Anesthesia Postop Eval I Summary: Anesthesia Postop Eval I: Assessment Summary Airway patent Yes 05/27/24 14:22 [email or web address] Spontaneous unlabored Yes 05/27/24 14:22 [email or web address] respirations Mental status Awake,Calm 05/27/24 14:22 [email or web address] nausea No 05/27/24 14:22 [email or web address] Vomiting No 05/27/24 14:22 [email or web address] Anesthesia Postop Eval I: Fluid Summary Crystalloid volume administer 1,000 05/27/24 14:22 [email or web address] (ml) Colloids volume administered ( ml) Blood Product volume administered (ml) Total IV fluid infused 1,000 05/27/24 14:22 [email or web address] Anesthesia Postop Eval I: Summary Notes Anesthesia Complication No 05/27/24 14:22 [email or web address] Anesthesia Complication Comment: Post-operative progress note Anesthesia: Postop Eval II Evaluation Mental status: Awake and Calm Pain Level: 1 nausea: No Vomiting: No Complications Anesthesia Complication: No
--- NOTE | 2024-05-27 19:00 | PCM.POSTANE2 ---
Anesthesia Postop Eval I Sum Postop Eval Completion status Anesthesia document: Postop Eval 1 completed: Yes Anesthesia Postop Eval I Summary Anesthesia Postop Eval I Summary: Anesthesia Postop Eval I: Assessment Summary Airway patent Yes 05/27/24 14:22 [email or web address] Spontaneous unlabored Yes 05/27/24 14:22 [email or web address] respirations Mental status Awake,Calm 05/27/24 14:22 [email or web address] nausea No 05/27/24 14:22 [email or web address] Vomiting No 05/27/24 14:22 [email or web address] Anesthesia Postop Eval I: Fluid Summary Crystalloid volume administer 1,000 05/27/24 14:22 [email or web address] (ml) Colloids volume administered ( ml) Blood Product volume administered (ml) Total IV fluid infused 1,000 05/27/24 14:22 [email or web address] Anesthesia Postop Eval I: Summary Notes Anesthesia Complication No 05/27/24 14:22 [email or web address] Anesthesia Complication Comment: Post-operative progress note Anesthesia: Postop Eval II Evaluation Mental status: Awake and Calm Pain Level: 1 nausea: No Vomiting: No Complications Anesthesia Complication: No
== END 2024-05-27 15:13 | disposition home or self-care (01) ==
LOC: SDC 11:17 → AC 11:18
PROVIDERS: Referring Provider Student in an Organized Health Care Education/Training Program; Visit Provider Student in an Organized Health Care Education/Training Program
PROC: (CPT 64721; principal; 2024-05-27 12:25)
DX: M65.332 Trigger finger, left middle finger (principal); G56.02 Carpal tunnel syndrome, left upper limb; G56.22 Lesion of ulnar nerve, left upper limb; L72.0 Epidermal cyst; I10 Essential (primary) hypertension; Z86.73 Personal history of transient ischemic attack (TIA), and cerebral infarction without residual deficits; F17.210 Nicotine dependence, cigarettes, uncomplicated
CPT/HCPCS: 64718; 11420; 64721; 26055; 01810; J2405

== ENCOUNTER → 2024-09-17 | Outpatient (CLI) | payer OTHER, SELFPAY | END | disposition home or self-care (01) | LOC: PSN 06:49 | PROVIDERS: Referring Provider Internal Medicine Cardiovascular Disease; Visit Provider Internal Medicine Cardiovascular Disease | DX: I48.92 Unspecified atrial flutter (principal); R00.1 Bradycardia, unspecified | CPT/HCPCS: 93225; 93226 ==